=== PATIENT | male | born 1945 | race Caucasian/White ===

== ENCOUNTER 2025-06-02 06:08 | Day surgery (SDC) | payer OTHER, SELFPAY ==
[2025-05-26 11:01] LABS: Hematocrit 39.1 % (39.0-52.0); Hemoglobin 12.8 g/dL (13.0-18.0); Mean Corp Hgb Conc. 32.7 g/dL (33.0-37.0); Mean Corpuscular Volume 86.3 fL (80.0-94.0); Platelet Count 165 10^3/uL (130-400); Red Cell Dist. Width 15.9 % (11.5-14.5)
[2025-05-26 11:08] LABS: INR 1.38; PT 17.2 Sec (11.4-14.6)
[2025-05-26 11:09] LABS: APTT 52.4 Sec (23.4-35.0)
[2025-05-26 11:19] LABS: ALT (SGPT) < 10 U/L (0-50); AST (SGOT) 29 U/L (17-59); Albumin 4.1 g/dl (3.5-5.0); Alkaline Phosphatase 115 U/L (38-126); Blood Urea Nitrogen 23 mg/dl (9-20); Calcium 9.2 mg/dl (8.4-10.2); Carbon Dioxide 33 mmol/L (22-30); Chloride 98 mmol/L (98-107); Glucose 111 mg/dl (70-99); Potassium 3.8 mmol/L (3.5-5.1); Sodium 140 mmol/L (135-145); Total Protein 7.3 g/dl (6.3-8.2); eGFR 51.45
--- NOTE | 2025-05-26 13:30 | PTCARENOTE ---
Jennifer in Dr. Kraus's office made aware of INR 1.38, PTT 52.4, and GFR 51.45.
[2025-05-26 14:06] VITALS: BMI 28.4
[2025-06-02] VITALS (11 sets, daily range): BP systolic 114–143; BP diastolic 60–76; BMI 28.4
[2025-06-02] MEDS: NORMOSOL-R/PLASMALYTE-A 1000 IV (08:45)
[2025-06-02] MEDS: TYLENOL 1000 MG PO (08:47)
--- NOTE | 2025-06-02 11:30 | OR.RPT ---
Operative Report
Operative Report
DATE OF OPERATION: June 02, 2025
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
POSTOPERATIVE DIAGNOSIS: Same
SURGEON: Ran Kraus M.D.
OPERATION: Left Thyroidectomy and Left Limited Neck Dissection - 41861
ANESTHESIA: GET
ESTIMATED BLOOD LOSS: 10 cc
DRAINS: None
SPECIMEN: left thyroid lobe and isthmus and left level paratracheal tissue
FINDINGS: left thyroid tumor
COMPLICATIONS: None
PROCEDURE:
The patient was taken to the operating room and placed in the usual supine position. After adequate general endotracheal anesthesia was established, the patient�s neck was extended, prepped, and draped in the typical sterile fashion. A 5 cm
transcervical incision was made two fingerbreadths above the sternal notch. The skin incision was made with the #15 blade, which was taken through the skin into the subcutaneous tissue. The underlying platysma muscle was divided, and subplatysmal
flaps were created superiorly to the thyroid cartilage and inferiorly to the sternal notch. Strap muscles were identified and at the midline.
Attention was turned to the patient�s left thyroid lobe. The left thyroid lobe was mobilized medially. During this process, the left middle thyroid vein and inferior thyroid artery were dissected and ligated with Ligasure. There was a substernal
extension, which was delivered out of the mediastinum through the cervical incision. Next, the left superior pole was taken down by dissecting and transecting the superior pole vessels with a Ligasure. The left thyroid lobe was mobilized medially.
During this process, the left recurrent laryngeal nerve was identified and preserved throughout its entire course. The left superior parathyroid gland was identified and preserved. The left thyroid lobe with isthmus was resected from the trachea and
sent to the pathology department.
At this time, the left neck dissection was performed. The tissue between the left carotid artery to the trachea into the anterior mediastinum was carefully dissected. The previously identified recurrent laryngeal nerve and parathyroid glands were
preserved. The tissue was removed and sent to the pathology department.
After achieving adequate hemostasis, the strap muscle was approximated with #3-0 Vicryl in a running fashion, and the platysma muscles were reapproximated with #3-0 Vicryl in an interrupted manner. The skin was then closed with #4-0 Monocryl in a
running subcuticular technique. Steri-strips and sterile dressings were applied. The patient tolerated the procedure well. The final instrument, needle, and sponge counts were correct.
== END 2025-06-02 14:11 | disposition home or self-care (01) ==
LOC: SDS 06:08
PROVIDERS: ATTENDING PHYSICIAN Surgery
DX: E04.1 Nontoxic single thyroid nodule (principal); D34 Benign neoplasm of thyroid gland; D36.0 Benign neoplasm of lymph nodes
CPT/HCPCS: 60252; 36415; 80053; 85027; 85610; 85730; 88307; C9250